=== PATIENT | male | born 1980 | race Caucasian/White ===

== ENCOUNTER 2019-01-29 17:25 | Inpatient (IN) ==
[2019-01-29] MEDS ORDERED: LORazepam 1 MG/2 ML VIAL IV STA (17:39)
[2019-01-29] MEDS ORDERED: SODIUM CHLORIDE 0.9% 1000ML 1,000 ML IV ONE (17:39)
[2019-01-29] MEDS ORDERED: PROCHLORPERAZINE 2 ML IV ONE (17:39)
[2019-01-29] MEDS ORDERED: FAMOTIDINE 20MG IV PUSH 20 MG/5 ML SYR IV STA (17:39)
[2019-01-29] MEDS ORDERED: MULTI-VITAMIN INFUSION 10 ML, THIAMINE HCL 100 MG, FOLIC ACID 1 MG in SODIUM CHLORIDE 0... IV ONE ×2 (17:39→22:38)
--- NOTE | 2019-01-29 18:02 | XRay Report ---
XR chest 1V portable HISTORY: Atypical Chest Pain COMPARISON: None. FINDINGS: The lungs are clear. Cardiac silhouette is normal in size. No pleural effusions. No pneumot horax. IMPRESSION: No acute process. Electronically signed by: Ruddy Rodrigues M.D. 01/29/2019 6:00 PM
[2019-01-29 18:19] LABS: INR 1.1 (0.9-1.1); Prothrombin Time 11.1 Seconds (9.0-12.0)
[2019-01-29 18:32] LABS: Albumin Globulin Ratio 0.9 (0.9-2); Albumin Level 4.9 gm/dl (3.4-5.0); BUN Creatinine Ratio 6.2 (10-20); Bilirubin,Total 3.4 mg/dl (0.2-1); Calcium 8.9 mg/dl (8.5-10.1); Creatinine Clr Calc Pharmacy 28.7 ml/min; Est GFR (African American) 26.1; Est GFR (Non-African American) 22.5; Globulin 5.2 gm/dl (2.5-4.0); Phosphorus 2.2 mg/dl (2.5-4.9); Total Protein 10.1 gm/dl (6.4-8.2)
[2019-01-29] MEDS ORDERED: D5W AND NSS 1,000 ML IV STA (18:47)
[2019-01-29] MEDS ORDERED: THIAMINE HCL 100 MG in SYRINGE 9 ML IV STA (18:47)
[2019-01-29 18:55] LABS: Basophils # (auto) 0.01 K/uL (0-0.2); Basophils % (auto) 0.1 %; Hematocrit (blood only) 47.3 % (42-52); Hemoglobin 17.4 g/dL (14.0-18.0); Immature Granulocytes # (auto) 0.04 K/uL (0.00-0.02); Immature Granulocytes % (auto) 0.2 %; Lymphocytes # (auto) 0.54 K/uL (1.2-3.4); Lymphocytes % (auto) 2.7 %; Mean Corpuscular Hemoglobin 34.1 pg (25-34); Mean Corpuscular Hgb Conc 36.8 g/dL (32-36); Mean Corpuscular Volume 92.6 fL (80-100); Mean Platelet Volume 10.3 fL (7.4-10.4); Monocytes # (auto) 1.25 K/uL (0.11-0.59); Monocytes % (auto) 6.3 %; Neutrophils # (auto) 18.03 K/uL (1.4-6.5); Neutrophils % (auto) 90.7 %; Platelet Count 203 K/uL (130-400); RDW Coefficient of Variation 12.8 % (11.5-14.5); RDW Standard Deviation 43.7 fL (36.4-46.3); Red Blood Count 5.11 M/uL (4.7-6.1); White Blood Count 19.87 K/uL (4.8-10.8)
[2019-01-29 20:05] LABS: Bilirubin Direct 0.5 mg/dl (0-0.2); Magnesium 1.4 mg/dl (1.8-2.4)
[2019-01-29 20:08] LABS: Beta-Hydroxybutyrate 4.62 mg/dl (0.2-2.81)
[2019-01-29 20:10] LABS: Base Excess VBG -1.8 mEq/L; HCO3 VBG 24 mmol/L; PCO2 VBG 43 mmHg (38-50); PO2 VBG 59 mmHg; pH VBG 7.36 (7.36-7.41)
[2019-01-29 20:14] LABS: Oxygen Saturation VBG < 60.0 %
--- NOTE | 2019-01-29 20:55 | History & Physical Report ---
Date of Service January 29, 2019 Assessment & Plan (1) Alcohol withdrawal: Severe - with s/s electrolyte abnormalities, hypovolemia, WILMAR, -pt states he has NO h/o withdrawal seizures or DTs when in supervised detoxification state -says this is his third attempt at detoxification. -thankfully presented within hours of last drink -last drink was 6am on 10Oct. -Withdrawal-associated seizures are generalized tonic-clonic convulsions that usually occur within 12 to 48 hours after the last alcoholic drink -Alcoholic hallucinosis refers to hallucinations that develop within 12 to 24 hours of abstinence and typically resolve within 24 to 48 hours (which is the earliest point at which DT typically develops) Plan: -AWSS protocol with gabapentin (renally dosed) and IV ativan. -follow closely for hallucinations, disorientation, tachycardia, hypertension, hyperthermia, agitation, and diaphoresis -if refractory DT, recommend phenobarbital 130 to 260 mg IV, repeated every 15 to 20 minutes, until symptoms are controlled. -npo overnight pending CT -- if normal, and emesis resolved -- ok for full liquids, then advance to regular. FEN/GI: famotidine 20mg IV BID in setting of scant blood in emesis history - ok to resume PO famotidine once emesis fully resolved. DVT ppx: SCDs, will hold chemical anticoagulation in light of h/o scant hematemesis CODE STATUS: FULL DISPO: med/tele on AWSS protocol - - desires to go to [facility] for rehab upon discharge. (2) Acute kidney injury: likely 2/2 dehydration in setting of diaphoresis, vomiting, decreased PO intake. No known h/o CKD. -aggressive fluid hydration -renally dose meds (inc gabapentin protocol) -follow BMP (3) Dehydration: -hypovolemia as a result of diaphoresis, hyperthermia, vomiting, tachypnea, and decreased oral intake -IV fluid hydration at maintenance and a half. -encourage PO hydration (4) Hyperemesis: zofran prn (5) Transaminitis: in setting of chronic alcohol abuse -- follow CMP, encourage alcohol cessation (6) Hyponatremia: 2/2 beer potomania -appears asymptomatic at this time -continue aggressive IV fluid hydration with nomal saline and isotonic potassium. Follow daily BMPs. (7) Hyperglycemia: Chronic heavy drinking has been associated with excessive blood glucose levels. Chronic alcohol abuse can reduce the body's responsiveness to insulin and because glucose intolerance, especially those with liver cirrhosis. Patient has a high risk of diabetes. However given recent binge drinking, acute alcohol consumption can augment insulin secretion--thankfully no hypoglycemia at this time, however will need to follow for hypoglycemia. -Levels have improved to the 200s simply with fluid hydration. -We will maintain n.p.o. overnight in acute state, and with recent emesis to prophylax aspiration. But would recommend resumption of a normal diet as soon as possible and as long as mentation maintains at normal. (8) Neutrophilic leukocytosis: Likely reactionary given alcohol withdrawal, alcohol abuse and hyperemesis for the last several days. Patient is afebrile although does complain of sore throat. Will follow for now and treat fevers as needed. (9) Hypomagnesemia: In setting of hyperemesis, replete as needed. (10) Hypophosphatemia: In setting of hyperemesis, replete as needed. (11) Hyperbilirubinemia: CT abd/pelv to assess for any blockages, but likely pt may have a cirrhotic picture in setting of chronic alcohol abuse. No curt jaundice on my exam. -agressive hydration, alcohol abstinence. -follow CMP, will likely self rsolve. (12) Benign essential hypertension: Continue home metoprolol tartrate - will unfortunately blunt some of his symptoms of withdrawal, follow closely. (13) Depression: Will HOLD home Seroquel in setting of acute withdrawal, as do not want to decrease seizure threshold at this time. Okay to resume upon discharge. (14) Tobacco abuse: NicoDerm patch 14 mg ordered. Ongoing education on cessation. (15) History of hematemesis: Appears to have been scant blood in his emesis earlier today. -Patient not acutely anemic. No history of melena or hematochezia. -Will order famotidine 20 mg twice daily IV and follow. -CT abdomen pelvis pending to evaluate for rupture, although clinically not suspicious given lack of free air on chest x-ray. (16) Alcohol abuse: Patient desires to go to [facility] for rehab upon discharge. Discharge planning ordered. (17) Dermatitis: topical hydrocortisone to face ordered. History of Present Illness Chief Complaint: Alcohol withdrawal, hyperemesis, hematemesis, hyperglycemia, hyponatremia, desire for detoxification Primary Care Provider: NO PCP This is a 39-year-old male who presents to the ER after attempting to check himself into rehab earlier today. He states his last drink was at 6 AM, he has been drinking over 1/5 of vodka every day for the last 4 days. Several days ago he began to experience worsening emesis. He notes blood tinged emesis earlier today. No curt melena or hematochezia. He also endorses hiccups for several days. He endorses severe muscle cramping in his abdomen, a sore throat and fatigue. Earlier at [facility] today, because of his discomfort and emesis they recommended he come to the ER to be evaluated. Patient notes alcohol abuse for several years. Occasional vaping with THC. History of marijuana use. Currently no other street drugs at this time. Patient smokes half pack per day. Drinks over fifth of vodka per day as above. Motivated for detox at [facility] upon discharge, says he wants to do it for "his kids". ED course: Patient with mild hypertension and sinus tachycardia on telemetry. Never hypoxic or febrile. CBC noted for leukocytosis 19.87, normal hemoglobin and hematocrit 17.4/47.3. Normal coagulation. VBG 7.3 643/59/24. Chemistry notable for sodium 124, bicarb 20, elevated anion gap 24, BUN/creatinine 21/3.29. Hyperglycemia 319. Proved to 249 after bolus. Mildly low phosphorus and magnesium. Hyperbilirubinemia 3.4, direct bilirubin 0.5. Mild transaminit is AST over ALT 86/200. Mildly elevated alkaline phosphatase 131. Elevated beta hydroxybutyric acid 4.62. Past medical history: Alcohol dependence, hypertension, kidney dysfunction (patient is unsure of specifics) Past surgical history: None Social history: As above Allergies Allergy/AdvReac Type Severity Reaction Status Date / Time Penicillins Allergy Rash Unverified 01/29/19 18:27 Home Medications Home Medications Medication Instructions Recorded Confirmed Type metoprolol tartrate 0 mg PO BID 01/29/19 01/29/19 History pantoprazole 0 mg PO DAILY 01/29/19 01/29/19 History quetiapine [Seroquel] 0 mg PO BID 01/29/19 01/29/19 History Past Med/Surg History Medical History Alcoholism Surgical History No pertinent past surgical history Family History Other No pertinent family history Social History Preferred Language: Georgian Communication Ability: Effective Beliefs That Will Affect Care: Moravian Current Living Situation: Alone Current Living Situation Comment: With children 50% of the time Other Information That Helps Us Care for You: No Feels Safe at Home: Yes Safety Concerns: Feels Safe At This Time Smoking Status: Current every day smoker Tobacco Type: cigarettes ; Do You Dip or Chew Tobacco: No ; Second Hand Exposure: No ; Tobacco Cessation Education Requested by Patient: Yes Hx Alcohol Use: Yes Alcohol type: hard liquor Review of Systems Review of Systems: worsening emesis. He notes blood tinged emesis earlier today. No curt melena or hematochezia. He also endorses hiccups for several days. He endorses severe muscle cramping in his abdomen, a sore throat and fatigue. Denies syncope, delirium, seizures or loss of consciousness. Physical Exam Physical Exam: Vitals noted and within normal limits with the exception of mild hypertension, sinus tachycardia. GENERAL: Awake, alert to person, place, and time, nontoxic-appearing, in no distress. HENT: Normocephalic, atraumatic. Mucus membranes appear moist. Dermatitis of the forehead and malar cheeks. EYES: Normal conjunctiva. Sclera non-icteric. EOMI. NECK: Supple. Full range of motion. No JVD. RESPIRATORY: Clear to auscultation. Normal work of breathing. CARDIAC: Regular rate, normal rhythm. Extremities warm and well perfused, 2+ radial pulses bilaterally; 2+ posterior tibialis pulses bilaterally. ABDOMEN: Soft, non-distended. No tenderness to palpation in all four quadrants. No rebound or guarding. No masses. Bowel sounds are normal. LOWER EXTREMITIES: Inspection of calves reveal equal size bilaterally. They are non-tender. No edema. No discoloration. NEURO: No gross focal motor deficits noted. Sensation in tact. CN II-XII grossly in tact. . SKIN: Rash on face consistent with dermatitis. No jaundice noted. PSYCH: Appropriate mood and affect. Cooperative. Exam as done by Ana Ly MD, [employer]. Results & Data Vital Signs (Past 12 Hours) Vital Signs Temp Pulse Resp BP Pulse Ox 01/29/19 19:31 119 H 21 01/29/19 19:30 122 H 19 143/97 H 01/29/19 19:04 107 H 22 100 01/29/19 19:03 109 H 24 149/99 H 100 01/29/19 18:30 114 H 23 151/103 H 99 01/29/19 18:18 128 H 19 97 01/29/19 17:26 36.9 C 128 H 19 142/82 H 97 Laboratory Results 01/29/19 01/29/19 01/29/19 Range/Units 19:54 19:54 19:21 WBC (4.8-10.8) K/uL RBC (4.7-6.1) M/uL Hgb (14.0-18.0) g/dL Hct (42-52) % MCV (80-100) fL MCH (25-34) pg MCHC (32-36) g/dL RDW Std Deviation (36.4-46.3) fL RDW Coeff of Kelby (11.5-14.5) % Plt Count (130-400) K/uL MPV (7.4-10.4) fL Immature Gran % (Auto) % Neut % (Auto) % Lymph % (Auto) % Crook % (Auto) % Eos % (Auto) % Baso % (Auto) % Immature Gran # (Auto) (0.00-0.02) K/uL Neut # (Auto) (1.4-6.5) K/uL Lymph # (Auto) (1.2-3.4) K/uL Crook # (Auto) (0.11-0.59) K/uL Eos # (Auto) (0-0.5) K/uL Baso # (Auto) (0-0.2) K/uL PT (9.0-12.0) Seconds INR (0.9-1.1) VBG pH 7.36 (7.36-7.41) VBG pCO2 43 (38-50) mmHg VBG pO2 59 mmHg VBG HCO3 24 mmol/L VBG O2 Saturation < 60.0 % VBG Base Excess -1.8 mEq/L Barometric Pressure 736.9 mm/Hg Sodium (136-145) mmol/L Potassium (3.5-5.1) mmol/L Chloride (98-107) mmol/L Carbon Dioxide (21-32) mmol/L Anion Gap (3-11) BUN (7-18) mg/dl Creatinine (0.6-1.4) mg/dl Est Cr Clr Drug Dosing ml/min Est GFR ( Amer) Est GFR (Non-Af Amer) BUN/Creatinine Ratio (10-20) Glucose (70-99) mg/dl POC Glucose 249 H (70-99) Osmolality (280-300) mOsm/kg Lactate Cancelled Calcium (8.5-10.1) mg/dl Phosphorus (2.5-4.9) mg/dl Magnesium (1.8-2.4) mg/dl Total Bilirubin (0.2-1) mg/dl Direct Bilirubin (0-0.2) mg/dl AST (15-37) U/L ALT (12-78) U/L Alkaline Phosphatase (45-117) U/L Total Creatine Kinase (39-308) U/L Total Protein (6.4-8.2) gm/dl Albumin (3.4-5.0) gm/dl Globulin (2.5-4.0) gm/dl Albumin/Globulin Ratio (0.9-2) Lipase (73-393) U/L Beta-Hydroxybutyric Acd (0.2-2.81) mg/dl 01/29/19 01/29/19 01/29/19 Range/Units 18:54 18:54 17:45 WBC (4.8-10.8) K/uL RBC (4.7-6.1) M/uL Hgb (14.0-18.0) g/dL Hct (42-52) % MCV (80-100) fL MCH (25-34) pg MCHC (32-36) g/dL RDW Std Deviation (36.4-46.3) fL RDW Coeff of Kelby (11.5-14.5) % Plt Count (130-400) K/uL MPV (7.4-10.4) fL Immature Gran % (Auto) % Neut % (Auto) % Lymph % (Auto) % Crook % (Auto) % Eos % (Auto) % Baso % (Auto) % Immature Gran # (Auto) (0.00-0.02) K/uL Neut # (Auto) (1.4-6.5) K/uL Lymph # (Auto) (1.2-3.4) K/uL Crook # (Auto) (0.11-0.59) K/uL Eos # (Auto) (0-0.5) K/uL Baso # (Auto) (0-0.2) K/uL PT 11.1 (9.0-12.0) Seconds INR 1.1 (0.9-1.1) VBG pH (7.36-7.41) VBG pCO2 (38-50) mmHg VBG pO2 mmHg VBG HCO3 mmol/L VBG O2 Saturation % VBG Base Excess mEq/L Barometric Pressure mm/Hg Sodium (136-145) mmol/L Potassium (3.5-5.1) mmol/L Chloride (98-107) mmol/L Carbon Dioxide (21-32) mmol/L Anion Gap (3-11) BUN (7-18) mg/dl Creatinine (0.6-1.4) mg/dl Est Cr Clr Drug Dosing ml/min Est GFR ( Amer) Est GFR (Non-Af Amer) BUN/Creatinine Ratio (10-20) Glucose (70-99) mg/dl POC Glucose (70-99) Osmolality 292 (280-300) mOsm/kg Lactate Calcium (8.5-10.1) mg/dl Phosphorus (2.5-4.9) mg/dl Magnesium 1.4 L (1.8-2.4) mg/dl Total Bilirubin (0.2-1) mg/dl Direct Bilirubin 0.5 H (0-0.2) mg/dl AST 86 H (15-37) U/L ALT (12-78) U/L Alkaline Phosphatase (45-117) U/L Total Creatine Kinase 251 (39-308) U/L Total Protein (6.4-8.2) gm/dl Albumin (3.4-5.0) gm/dl Globulin (2.5-4.0) gm/dl Albumin/Globulin Ratio (0.9-2) Lipase (73-393) U/L Beta-Hydroxybutyric Acd 4.62 H (0.2-2.81) mg/dl 01/29/19 01/29/19 Range/Units 17:45 17:45 WBC 19.87 H (4.8-10.8) K/uL RBC 5.11 (4.7-6.1) M/uL Hgb 17.4 (14.0-18.0) g/dL Hct 47.3 (42-52) % MCV 92.6 (80-100) fL MCH 34.1 H (25-34) pg MCHC 36.8 H (32-36) g/dL RDW Std Deviation 43.7 (36.4-46.3) fL RDW Coeff of Kelby 12.8 (11.5-14.5) % Plt Count 203 (130-400) K/uL MPV 10.3 (7.4-10.4) fL Immature Gran % (Auto) 0.2 % Neut % (Auto) 90.7 % Lymph % (Auto) 2.7 % Crook % (Auto) 6.3 % Eos % (Auto) 0.0 % Baso % (Auto) 0.1 % Immature Gran # (Auto) 0.04 H (0.00-0.02) K/uL Neut # (Auto) 18.03 H (1.4-6.5) K/uL Lymph # (Auto) 0.54 L (1.2-3.4) K/uL Crook # (Auto) 1.25 H (0.11-0.59) K/uL Eos # (Auto) 0.00 (0-0.5) K/uL Baso # (Auto) 0.01 (0-0.2) K/uL PT (9.0-12.0) Seconds INR (0.9-1.1) VBG pH (7.36-7.41) VBG pCO2 (38-50) mmHg VBG pO2 mmHg VBG HCO3 mmol/L VBG O2 Saturation % VBG Base Excess mEq/L Barometric Pressure mm/Hg Sodium 124 L (136-145) mmol/L Potassium (3.5-5.1) mmol/L Chloride 80 L (98-107) mmol/L Carbon Dioxide 20 L (21-32) mmol/L Anion Gap 24.0 H (3-11) BUN 21 H (7-18) mg/dl Creatinine 3.29 H (0.6-1.4) mg/dl Est Cr Clr Drug Dosing 28.7 ml/min Est GFR ( Amer) 26.1 Est GFR (Non-Af Amer) 22.5 BUN/Creatinine Ratio 6.2 L (10-20) Glucose 319 H* (70-99) mg/dl POC Glucose (70-99) Osmolality (280-300) mOsm/kg Lactate Calcium 8.9 (8.5-10.1) mg/dl Phosphorus 2.2 L (2.5-4.9) mg/dl Magnesium (1.8-2.4) mg/dl Total Bilirubin 3.4 H (0.2-1) mg/dl Direct Bilirubin (0-0.2) mg/dl AST (15-37) U/L ALT 200 H (12-78) U/L Alkaline Phosphatase 131 H (45-117) U/L Total Creatine Kinase (39-308) U/L Total Protein 10.1 H (6.4-8.2) gm/dl Albumin 4.9 (3.4-5.0) gm/dl Globulin 5.2 H (2.5-4.0) gm/dl Albumin/Globulin Ratio 0.9 (0.9-2) Lipase 86 (73-393) U/L Beta-Hydroxybutyric Acd (0.2-2.81) mg/dl Diagnostic Findings Chest x-ray within normal limits. CT abdomen pelvis without contrast pending as of this documentation. Medications Administered Ativan 1 mg, Pepcid 20 mg IV, banana bag, 1 L bolus of normal saline, Compazine, thiamine, dextrose and normal saline. Supervising Physician Co-Signing Physician Notes Patient was seen and examined by me personally. I reviewed the chart, the orders and discussed the case in detail with Dr. Ana Ly MD . I read this H&P and agree with its contents to entirety. PG Care Time/CCT Total # of Minutes Spent Total Time Spent with Patient: Total time spent is greater than 50% in coordination of care (as documented) at patient's floor/unit and/or counseling patient: Resident Activity Tracking Resident Involvement: Resident Care Provided Care Provided: Adult [facility] Medicine
--- NOTE | 2019-01-29 22:37 | CT Scan Report ---
ABDOMEN AND PELVIS CT WITHOUT CONTRAST CT DOSE: 308.11 mGy.cm HISTORY: Acute upper abdominal pain with nausea and vomiting upper abdominal pain, n/v, TECHNIQUE: Multiaxial CT images of the abdomen and pelvis were performed without contrast. A dose lo wering technique was utilized adhering to the principles of ALARA. COMPARISON STUDY: Chest radiograph of same day FINDINGS: Minimal dependent subsegmental bibasilar atelectasis. There is no pneumatosis or pneumoperitoneum. Th e study is mildly motion degraded. The imaged inferior cardiac chambers are unremarkable. Hepatic stephany atosis without evidence of cirrhosis or ascites. Spleen, pancreas, gallbladder and adrenal glands dylon ear unremarkable. No biliary ductal dilation. The kidneys, ureters and urinary bladder are unremarkab le. Calcifications are noted about the central prostate. Aorta and IVC are unremarkable. There is no adenopathy. Mild wall thickening of the distal esophagus with mild periesophageal stranding. The distal esophagus is also fluid-filled. There is no bowel obstruction or bowel wall thickening identified. Mild coloni c diverticulosis without acute diverticulitis. Visualized appendix appears noninflamed within the abd ominal right lower quadrant. Soft tissues are unremarkable. Bones appear to be intact. IMPRESSION: 1. Motion degraded exam. 2. No bowel obstruction or bowel wall thickening. 3. Visualized appendix appears noninflamed. 4. Fluid-filled distal esophagus demonstrates circumferential wall thickening with mild periesophagea l inflammation suggestive of esophagitis. Findings could be correlated with follow-up endoscopy if cl inically warranted. 5. Hepatic steatosis. Electronically signed by: Mark Peterson M.D. 01/29/2019 10:36 PM
[2019-01-29] MEDS ORDERED: ALUMINUM/MAGNESIUM SUSP 30 ML UDC PO PRN (22:38)
[2019-01-29] MEDS ORDERED: LORazepam 2 MG/4 ML VIAL IV PRN (22:38)
[2019-01-29] MEDS ORDERED: LORazepam 1 MG/2 ML VIAL IV PRN (22:38)
[2019-01-29] MEDS ORDERED: ONDANSETRON INJ 2 MG/ML 2 ML VIAL IV PRN (22:38)
[2019-01-29] MEDS ORDERED: MAGNESIUM HYDROXIDE SUSP 30 ML UDC PO PRN (22:38)
[2019-01-29] MEDS ORDERED: GABAPENTIN 600MG ALCOHOL WITHDRAWAL LOAD PO STA (22:38)
[2019-01-29] MEDS ORDERED: ATIVAN IV ALCOHOL WITHDRAWL IV SCH (22:38)
[2019-01-29] MEDS ORDERED: CHLORASEPTIC 1.4% SOLN 180 ML BTL MT PRN (22:38)
[2019-01-29] MEDS ORDERED: LORazepam 3 MG/6 ML VIAL IV PRN (22:38)
[2019-01-29] MEDS ORDERED: POLYETHYLENE (MIRALAX) 17 GM PACK PO PRN (22:38)
[2019-01-29] MEDS ORDERED: ACETAMINOPHEN 325 MG TAB PO PRN (22:38)
[2019-01-29] MEDS ORDERED: GABAPENTIN 600 MG TAB PO ONE (22:38)
[2019-01-29] MEDS: NSS + 20MEQ KCL 20 MEQ/1,000 ML BAG IV SCH (22:58)
[2019-01-29] MEDS: FOLIC ACID 1 MG in SYRINGE 9.8 ML IV SCH (23:05)
[2019-01-29] MEDS: THIAMINE HCL 100 MG in SYRINGE 9 ML IV SCH (23:05)
[2019-01-29] MEDS: HYDROCORTISONE 1% CRM 30 GM TUBE EXT SCH (23:16)
[2019-01-29] MEDS: METOPROLOL TARTRATE 25 MG TAB PO SCH (23:17)
--- NOTE | 2019-01-30 05:28 | Emergency Department Note ---
Entered by Thompson Coelho acting as a scribe for History of Present Illness General Chief complaint: Alcohol Withdrawal Stated complaint: SEVERE ALCOHOL WITHDRAWAL Time Seen by Provider: 01/29/19 17:32 Source: patient History of Present Illness Onset (ago): hour(s) (24) Pain Consistency: + intermittent Maximum Pain Intensity: 4 Quality: + other (nausea/vomiting) Exacerbated By: + eating (and drinking) Associated symptoms: + denies other symptoms (congestion) and + other (abdominal cramping, leg cramping); no cough and no fever/chills The patient is a 39 y/o male who presents to the ED w/ CC of intermittent nausea and vomiting beginning 24 hours ago. The patient presents from [facility] for alcoholism. He reports the last time alcoholic drink was at 6am. The patient notes he is not able to keep anything down without vomiting other than alcohol, and there is some blood present in his vomit. He states he cannot take his Valium because it makes him vomit. The patient reports he has also been getting abdominal cramping and cramping in his legs. He notes he was drinking a fifth of vodka a day and has been drinking a little more the past week. The patient states he was recently started on Seroquel, metoprolol, and pantoprazole, but he stopped taking it last week because he was drinking. He reports he went to detox a month ago, and he did not stay for rehab because he did not want to lose his job. The patient notes he was in detox for four days. He denies fevers, chills, cough, and congestion. Home Medications Home Medications Medication Instructions Recorded Confirmed Type metoprolol tartrate 0 mg PO BID 01/29/19 01/29/19 History pantoprazole 0 mg PO DAILY 01/29/19 01/29/19 History quetiapine [Seroquel] 0 mg PO BID 01/29/19 01/29/19 History Allergies Allergy/AdvReac Type Severity Reaction Status Date / Time Penicillins Allergy Rash Unverified 01/29/19 18:27 Past Med/Surg History Medical History Alcoholism Surgical History No pertinent past surgical history Family History Other No pertinent family history Social History Preferred Language: Setswana Communication Ability: Effective Beliefs That Will Affect Care: Jain Current Living Situation: Alone Current Living Situation Comment: With children 50% of the time Other Information That Helps Us Care for You: No Feels Safe at Home: Yes Safety Concerns: Feels Safe At This Time Smoking Status: Current every day smoker Tobacco Type: cigarettes ; Do You Dip or Chew Tobacco: No ; Second Hand Exposure: No ; Tobacco Cessation Education Requested by Patient: Yes Hx Alcohol Use: Yes Alcohol type: hard liquor Review of Systems See HPI for pertinent positives & negatives. and A total of 10 systems reviewed and were otherwise negative Physical Exam Vital Signs Vital Signs - 24 hr 01/29/19 17:26 01/29/19 18:18 01/29/19 18:30 Temperature 36.9 C Temperature Source Oral Sepsis Recent Fever Within 48 Hours No Sepsis Action Taken by Nursing No Action Required Pulse Rate 128 H 128 H 114 H Pulse Rate from SpO2 Sensor 113 H Pulse Rhythm Regular Regular Pulse Strength Normal Respiratory Rate 19 19 23 Blood Pressure 142/82 H 151/103 H Blood Pressure Mean 102 119 Blood Pressure Position Sitting Pulse Oximetry 97 97 99 Oxygen Delivery Method Room Air Room Air Room Air 01/29/19 19:03 01/29/19 19:04 01/29/19 19:30 Temperature Temperature Source Sepsis Recent Fever Within 48 Hours Sepsis Action Taken by Nursing Pulse Rate 109 H 107 H 122 H Pulse Rate from SpO2 Sensor 110 H 106 H Pulse Rhythm Pulse Strength Respiratory Rate 24 22 19 Blood Pressure 149/99 H 143/97 H Blood Pressure Mean 115 112 Blood Pressure Position Pulse Oximetry 100 100 Oxygen Delivery Method Room Air 01/29/19 19:31 01/29/19 20:00 01/29/19 20:01 Temperature Temperature Source Sepsis Recent Fever Within 48 Hours Sepsis Action Taken by Nursing Pulse Rate 119 H 122 H 115 H Pulse Rate from SpO2 Sensor Pulse Rhythm Pulse Strength Respiratory Rate 21 19 40 H Blood Pressure 146/98 H Blood Pressure Mean 114 Blood Pressure Position Pulse Oximetry Oxygen Delivery Method 01/29/19 20:30 01/29/19 20:31 Temperature Temperature Source Sepsis Recent Fever Within 48 Hours Sepsis Action Taken by Nursing Pulse Rate 126 H 120 H Pulse Rate from SpO2 Sensor Pulse Rhythm Pulse Strength Respiratory Rate 22 27 H Blood Pressure 150/104 H Blood Pressure Mean 119 Blood Pressure Position Pulse Oximetry Oxygen Delivery Method GENERAL: Awake, alert, ill-appearing, in no distress HENT: Normocephalic, atraumatic. Oropharynx with dry mucous membranes and otherwise unremarkable. EYES: Normal conjunctiva. Sclera non-icteric. EOMI. No nystamgus. PEARRL. NECK: Supple. No nuchal rigidity. FROM. No JVD. RESPIRATORY: CTAB CARDIAC: Tachycardic rate, normal rhythm. Extremities warm and well perfused. Pulses equal. ABDOMEN: Soft, non-distended. Generalized abdominal discomfort without discrete ttp. No rebound or guarding. No masses. RECTAL: Deferred. MUSCULOSKELETAL: Chest examination reveals no tenderness. The back is symmetric al on inspection without obvious abnormality. There is no CVA tenderness to palpation. No joint edema. LOWER EXTREMITIES: Calves are equal size bilaterally and non-tender. No edema. No discoloration. NEURO: Normal sensorium. No sensory or motor deficits noted. Mildly tremulous. SKIN: No rash or jaundice noted. Course 1733: Past medical records reviewed. The patient was evaluated in room C04. A complete history and physical exam was performed. 1940: Upon reevaluation, the patient is resting comfortably. I discussed laboratory and radiographic results with him. He verbalized agreement of the treatment plan. The patient will be evaluated for further management and care. 1946: I reviewed the patient's case with [place]. [place], [facility] He will evaluate the patient for further management. Administered Medications Hydrocortisone (Hydrocortisone 1%) 1 appln EXT BID LEATHA Stop: 02/28/19 22:37 Last Admin: 01/29/19 23:16 Dose: 1 appln Documented by: [id number] Folic Acid 1 mg/ Syringe 10 mls @ 5 mls/min IV QAM LEATHA Stop: 02/28/19 22:59 Last Admin: 01/29/19 23:05 Dose: 5 mls/min Documented by: [id number] Potassium Chloride/Sodium Chloride (Normal Saline W/20 Meq Kcl) 20 meq in 1,000 mls @ 150 mls/hr IV .Q6H40M LEATHA Stop: 02/01/19 22:37 Last Admin: 01/29/19 22:58 Dose: 150 mls/hr Documented by: [id number] Thiamine HCl 100 mg/ Syringe 10 mls @ 2 mls/min IV QAM LEATHA Stop: 02/28/19 22:44 Last Admin: 01/29/19 23:05 Dose: 2 mls/min Documented by: [id number] Metoprolol Tartrate (Lopressor) 25 mg PO BID LEATHA Stop: 02/28/19 22:37 Last Admin: 01/29/19 23:17 Dose: 25 mg Documented by: [id number] Phenol (Chloraseptic 1.4% Bighorn) 2 sprays MT QID PRN PRN Reason: Sore Throat Stop: 02/28/19 22:37 Last Admin: 01/29/19 23:16 Dose: 2 sprays Documented by: [id number] Discontinued Medications Gabapentin (Neurontin) 600 mg PO NOW ONE Stop: 01/29/19 22:39 Last Admin: 01/29/19 23:16 Dose: 600 mg Documented by: [id number] Lorazepam (Ativan) 1 mg in 2 mls @ 2 mls/min IV NOW STA Stop: 01/29/19 17:40 Last Admin: 01/29/19 17:55 Dose: 2 mls/min Documented by: [id number] Famotidine (Pepcid 20mg Iv Push) 20 mg in 5 mls @ 2.5 mls/min IV NOW STA Stop: 01/29/19 17:40 Last Admin: 01/29/19 17:55 Dose: 2.5 mls/min Documented by: [id number] Multivitamins 10 ml/ Thiamine HCl 100 mg/ Folic Acid 1 mg/Sodium Chloride 1,011.2 mls @ 1,011.2 mls/hr IV .Q1H ONE Stop: 01/29/19 18:38 Last Infusion: 01/29/19 19:41 Dose: 0 mls/hr Documented by: [id number] Admin: 01/29/19 18:47 Dose: 1,011.2 mls/hr Documented by: [id number] Sodium Chloride (Nss 1000ml) 1,000 mls @ 999 mls/hr IV .Q1H1M ONE Stop: 01/29/19 18:39 Last Infusion: 01/29/19 18:47 Dose: 0 mls/hr Documented by: [id number] Admin: 01/29/19 17:55 Dose: 999 mls/hr Documented by: [id number] Prochlorperazine (Compazine) 2 mls @ 1 mls/min IV ONE ONE Stop: 01/29/19 17:40 Last Admin: 01/29/19 17:55 Dose: 1 mls/min Documented by: [id number] Thiamine HCl 100 mg/ Syringe 10 mls @ 2 mls/min IV NOW STA Stop: 01/29/19 18:51 Last Admin: 01/29/19 19:28 Dose: 2 mls/min Documented by: [id number] Dextrose/Sodium Chloride (D5w And Nss) 1,000 mls @ 999 mls/hr IV .Q1H1M STA Stop: 01/29/19 19:47 Last Admin: 01/29/19 19:28 Dose: Not Given Documented by: [id number] Multivitamins 10 ml/ Thiamine HCl 100 mg/ Folic Acid 1 mg/Sodium Chloride 1,011.2 mls @ 500 mls/hr IV .Q2H2M ONE Stop: 01/30/19 00:39 Last Infusion: 01/30/19 01:14 Dose: 0 mls/hr Documented by: [id number] Admin: 01/29/19 23:05 Dose: 500 mls/hr Documented by: [id number] Medical Decision Making Differential Diagnosis The differential diagnosis of the patient's presentation includes alcohol ingestion, illicit drug use, trauma, and dehydration. Medical Records Attestation: I reviewed the patient's medical records. Home Medications Current Medication List: was personally reviewed by me Laboratory Data Attestation: I reviewed the patient's lab results. Result diagrams: 01/29/19 17:45 01/29/19 17:45 Lab Results 01/29/19 01/29/19 01/29/19 Range/Units 17:45 17:45 17:45 WBC 19.87 H (4.8-10.8) K/uL RBC 5.11 (4.7-6.1) M/uL Hgb 17.4 (14.0-18.0) g/dL Hct 47.3 (42-52) % MCV 92.6 (80-100) fL MCH 34.1 H (25-34) pg MCHC 36.8 H (32-36) g/dL RDW Std Deviation 43.7 (36.4-46.3) fL RDW Coeff of Kelby 12.8 (11.5-14.5) % Plt Count 203 (130-400) K/uL MPV 10.3 (7.4-10.4) fL Immature Gran % (Auto) 0.2 % Neut % (Auto) 90.7 % Lymph % (Auto) 2.7 % Price % (Auto) 6.3 % Eos % (Auto) 0.0 % Baso % (Auto) 0.1 % Immature Gran # (Auto) 0.04 H (0.00-0.02) K/uL Neut # (Auto) 18.03 H (1.4-6.5) K/uL Lymph # (Auto) 0.54 L (1.2-3.4) K/uL Price # (Auto) 1.25 H (0.11-0.59) K/uL Eos # (Auto) 0.00 (0-0.5) K/uL Baso # (Auto) 0.01 (0-0.2) K/uL PT 11.1 (9.0-12.0) Seconds INR 1.1 (0.9-1.1) VBG pH (7.36-7.41) VBG pCO2 (38-50) mmHg VBG pO2 mmHg VBG HCO3 mmol/L VBG O2 Saturation % VBG Base Excess mEq/L Barometric Pressure mm/Hg Sodium 124 L (136-145) mmol/L Potassium (3.5-5.1) mmol/L Chloride 80 L (98-107) mmol/L Carbon Dioxide 20 L (21-32) mmol/L Anion Gap 24.0 H (3-11) BUN 21 H (7-18) mg/dl Creatinine 3.29 H (0.6-1.4) mg/dl Est Cr Clr Drug Dosing 28.7 ml/min Est GFR ( Amer) 26.1 Est GFR (Non-Af Amer) 22.5 BUN/Creatinine Ratio 6.2 L (10-20) Glucose 319 H* (70-99) mg/dl POC Glucose (70-99) Osmolality (280-300) mOsm/kg Lactate Calcium 8.9 (8.5-10.1) mg/dl Phosphorus 2.2 L (2.5-4.9) mg/dl Magnesium (1.8-2.4) mg/dl Total Bilirubin 3.4 H (0.2-1) mg/dl Direct Bilirubin (0-0.2) mg/dl AST (15-37) U/L ALT 200 H (12-78) U/L Alkaline Phosphatase 131 H (45-117) U/L Total Creatine Kinase (39-308) U/L Total Protein 10.1 H (6.4-8.2) gm/dl Albumin 4.9 (3.4-5.0) gm/dl Globulin 5.2 H (2.5-4.0) gm/dl Albumin/Globulin Ratio 0.9 (0.9-2) Lipase 86 (73-393) U/L Beta-Hydroxybutyric Acd (0.2-2.81) mg/dl 01/29/19 01/29/19 01/29/19 Range/Units 18:54 18:54 19:21 WBC (4.8-10.8) K/uL RBC (4.7-6.1) M/uL Hgb (14.0-18.0) g/dL Hct (42-52) % MCV (80-100) fL MCH (25-34) pg MCHC (32-36) g/dL RDW Std Deviation (36.4-46.3) fL RDW Coeff of Kelby (11.5-14.5) % Plt Count (130-400) K/uL MPV (7.4-10.4) fL Immature Gran % (Auto) % Neut % (Auto) % Lymph % (Auto) % Price % (Auto) % Eos % (Auto) % Baso % (Auto) % Immature Gran # (Auto) (0.00-0.02) K/uL Neut # (Auto) (1.4-6.5) K/uL Lymph # (Auto) (1.2-3.4) K/uL Price # (Auto) (0.11-0.59) K/uL Eos # (Auto) (0-0.5) K/uL Baso # (Auto) (0-0.2) K/uL PT (9.0-12.0) Seconds INR (0.9-1.1) VBG pH (7.36-7.41) VBG pCO2 (38-50) mmHg VBG pO2 mmHg VBG HCO3 mmol/L VBG O2 Saturation % VBG Base Excess mEq/L Barometric Pressure mm/Hg Sodium (136-145) mmol/L Potassium (3.5-5.1) mmol/L Chloride (98-107) mmol/L Carbon Dioxide (21-32) mmol/L Anion Gap (3-11) BUN (7-18) mg/dl Creatinine (0.6-1.4) mg/dl Est Cr Clr Drug Dosing ml/min Est GFR ( Amer) Est GFR (Non-Af Amer) BUN/Creatinine Ratio (10-20) Glucose (70-99) mg/dl POC Glucose 249 H (70-99) Osmolality 292 (280-300) mOsm/kg Lactate Calcium (8.5-10.1) mg/dl Phosphorus (2.5-4.9) mg/dl Magnesium 1.4 L (1.8-2.4) mg/dl Total Bilirubin (0.2-1) mg/dl Direct Bilirubin 0.5 H (0-0.2) mg/dl AST 86 H (15-37) U/L ALT (12-78) U/L Alkaline Phosphatase (45-117) U/L Total Creatine Kinase 251 (39-308) U/L Total Protein (6.4-8.2) gm/dl Albumin (3.4-5.0) gm/dl Globulin (2.5-4.0) gm/dl Albumin/Globulin Ratio (0.9-2) Lipase (73-393) U/L Beta-Hydroxybutyric Acd 4.62 H (0.2-2.81) mg/dl 01/29/19 01/29/19 Range/Units 19:54 19:54 WBC (4.8-10.8) K/uL RBC (4.7-6.1) M/uL Hgb (14.0-18.0) g/dL Hct (42-52) % MCV (80-100) fL MCH (25-34) pg MCHC (32-36) g/dL RDW Std Deviation (36.4-46.3) fL RDW Coeff of Kelby (11.5-14.5) % Plt Count (130-400) K/uL MPV (7.4-10.4) fL Immature Gran % (Auto) % Neut % (Auto) % Lymph % (Auto) % Price % (Auto) % Eos % (Auto) % Baso % (Auto) % Immature Gran # (Auto) (0.00-0.02) K/uL Neut # (Auto) (1.4-6.5) K/uL Lymph # (Auto) (1.2-3.4) K/uL Price # (Auto) (0.11-0.59) K/uL Eos # (Auto) (0-0.5) K/uL Baso # (Auto) (0-0.2) K/uL PT (9.0-12.0) Seconds INR (0.9-1.1) VBG pH 7.36 (7.36-7.41) VBG pCO2 43 (38-50) mmHg VBG pO2 59 mmHg VBG HCO3 24 mmol/L VBG O2 Saturation < 60.0 % VBG Base Excess -1.8 mEq/L Barometric Pressure 736.9 mm/Hg Sodium (136-145) mmol/L Potassium (3.5-5.1) mmol/L Chloride (98-107) mmol/L Carbon Dioxide (21-32) mmol/L Anion Gap (3-11) BUN (7-18) mg/dl Creatinine (0.6-1.4) mg/dl Est Cr Clr Drug Dosing ml/min Est GFR ( Amer) Est GFR (Non-Af Amer) BUN/Creatinine Ratio (10-20) Glucose (70-99) mg/dl POC Glucose (70-99) Osmolality (280-300) mOsm/kg Lactate Cancelled Calcium (8.5-10.1) mg/dl Phosphorus (2.5-4.9) mg/dl Magnesium (1.8-2.4) mg/dl Total Bilirubin (0.2-1) mg/dl Direct Bilirubin (0-0.2) mg/dl AST (15-37) U/L ALT (12-78) U/L Alkaline Phosphatase (45-117) U/L Total Creatine Kinase (39-308) U/L Total Protein (6.4-8.2) gm/dl Albumin (3.4-5.0) gm/dl Globulin (2.5-4.0) gm/dl Albumin/Globulin Ratio (0.9-2) Lipase (73-393) U/L Beta-Hydroxybutyric Acd (0.2-2.81) mg/dl Imaging Data Radiologist's Impression: Radiology results as stated below per my review and the radiologist's interpretation: XR chest 1V portable HISTORY: Atypical Chest Pain COMPARISON: None. FINDINGS: The lungs are clear. Cardiac silhouette is normal in size. No pleural effusions. No pneumothorax. IMPRESSION: No acute process. Electronically signed by: Ruddy Rodrigues M.D. 01/29/2019 6:00 PM ABDOMEN AND PELVIS CT WITHOUT CONTRAST CT DOSE: 308.11 mGy.cm HISTORY: Acute upper abdominal pain with nausea and vomiting upper abdominal pain, n/v, TECHNIQUE: Multiaxial CT images of the abdomen and pelvis were performed without contrast. A dose lowering technique was utilized adhering to the principles of ALARA. COMPARISON STUDY: Chest radiograph of same day FINDINGS: Minimal dependent subsegmental bibasilar atelectasis. There is no pneumatosis or pneumoperitoneum. The study is mildly motion degraded. The imaged inferior cardiac chambers are unremarkable. Hepatic steatosis without evidence of cirrhosis or ascites. Spleen, pancreas, gallbladder and adrenal glands appear unremarkable. No biliary ductal dilation. The kidneys, ureters and urinary bladder are unremarkable. Calcifications are noted about the central prostate. Aorta and IVC are unremarkable. There is no adenopathy. Mild wall thickening of the distal esophagus with mild periesophageal stranding. The distal esophagus is also fluid-filled. There is no bowel obstruction or bowel wall thickening identified. Mild colonic diverticulosis without acute diverticulitis. Visualized appendix appears noninflamed within the abdominal right lower quadrant. Soft tissues are unremarkable. Bones appear to be intact. IMPRESSION: 1. Motion degraded exam. 2. No bowel obstruction or bowel wall thickening. 3. Visualized appendix appears noninflamed. 4. Fluid-filled distal esophagus demonstrates circumferential wall thickening with mild periesophageal inflammation suggestive of esophagitis. Findings could be correlated with follow-up endoscopy if clinically warranted. 5. Hepatic steatosis. Electronically signed by: Mark Peterson M.D. 01/29/2019 10:36 PM ECG Data Attestation: I personally reviewed and interpreted this ECG as follows: Indication: tachycardia Rate (beats per minute): 106 Rhythm: sinus tachycardia Findings: + other (normal axis); no ST depression, no ST elevation and no acute ischemic change Blood Pressure Blood Pressure Findings: Elevated blood pressure Blood Pressure Disposition: Referred to patients primary care provider PATT Narrative The patient is a pleasant 39 yo gentleman with a pmhx of etoh abuse/dependence who presents to the emergency department from [place] detox program for persistent n/v with inability to take his oral detox medications per HPI. Patient reports he has some emesis that was blood tinged but denies gross hematemesis. On arrival the patient is ill appearing but in NAD, AF, tachycardic to 120s and otherwise VSS. Patient appears clinically dry. He is mild tremulous. Abdomen with generalized discomfort without discrete ttp. Normal reflexes. No clonus. EKG without overt acute ischemia. CXR negative for free air. WBC 19.8K in the setting of patient's persistent n/v. H/H and platelets wnl. VBG unremarkable. Chemistry demonstrates acute renal failure, which is consistent with patient's report of dark colored urine recently. Agap 24 however with bicarb 20. Lactate unable to result. Sodium 124 but with glucose of 319 and so corrects to 128. Lipase wnl. BSG improved to 249 with IVF hydration alone. BHB 4.6. Magnesium pending redraw. INR 1.1. Total bilirubin 3.4 with Direct biiirubin of 0.5. AST 86, and ALT 200. Alk Phos 131. Patient feeling improved after IVF hydration, Ativan, Compazine, Pepcid, Thiamine/Banana bag. HR improved to 100s. CT ordered and pending. Given patient's acidosis, which is likely related to patient's renal failure/dehydration and possible new onset diabetes from etoh patient was referred for admission. Case d/[place]. [place], [facility] [place] who will evaluate the patient for admission. Subsequently, CT demonstrates evidence of esphogatitis as well as hepatosteatosis. Impression & Plan Acute renal failure, Metabolic acidosis, Hyperglycemia, Alcohol withdrawal Critical Care Time Critical Care Time: Yes Total Critical Care Time: 45 I have personally spent greater than 45 minutes of critical care time in the direct management of this patient. This includes bedside care, interpretation of diagnostic studies, and testing, discussion with consultants, patient, and family members, and other required patient management activities. This 45 minutes is in excess of all separately billable procedures. Discharge Plan Visit Data *Final* Discharge Date/Time: 01/29/19 21:23 Chief Complaint: Alcohol Withdrawal Stated Complaint: SEVERE ALCOHOL WITHDRAWAL ED Provider: Roberto Miller Discharge Problem: Acute renal failure, Metabolic acidosis, Hyperglycemia, Alcohol withdrawal Patient Disposition: Admitted As Inpatient Discharge Instructions Interventions: ED Discharge Assessment Last Done: 01/29/19 21:23 Discharge Problem: Acute renal failure Qualifiers: Acute renal failure type: unspecified Qualified Code(s): N17.9 - Acute kidney failure, unspecified Alcohol withdrawal Qualifiers: Complication of substance-induced condition: uncomplicated Qualified Code(s): F10.230 - Alcohol dependence with withdrawal, uncomplicated The scribe's documentation has been prepared under my direction and personally reviewed by me in its entirety. I confirm that the note above accurately reflects all work, treatment, procedures, and medical decision making performed by me.
[2019-01-30] MEDS: NSS + 20MEQ KCL 20 MEQ/1,000 ML BAG IV SCH ×3 (05:38→20:41)
[2019-01-30] MEDS: GABAPENTIN 100 MG CAP PO SCH ×2 (06:07→12:55)
[2019-01-30] MEDS: NICOTINE 14 MG/24 HR PATCH TD SCH (08:01)
[2019-01-30] MEDS: METOPROLOL TARTRATE 25 MG TAB PO SCH ×2 (08:01→20:57)
[2019-01-30] MEDS: FOLIC ACID 1 MG in SYRINGE 9.8 ML IV SCH (08:02)
[2019-01-30] MEDS: THIAMINE HCL 100 MG in SYRINGE 9 ML IV SCH (08:02)
[2019-01-30] MEDS: HYDROCORTISONE 1% CRM 30 GM TUBE EXT SCH ×2 (08:02→20:42)
[2019-01-30] MEDS: FAMOTIDINE 20 MG in SYRINGE 3 ML IV SCH ×2 (08:07→20:45)
[2019-01-30 08:24] LABS: Albumin Level 2.9 gm/dl (3.4-5.0); BUN Creatinine Ratio 10.9 (10-20); Bilirubin Direct 0.4 mg/dl (0-0.2); Calcium 7.2 mg/dl (8.5-10.1); Creatinine Clr Calc Pharmacy 48.9 ml/min; Est GFR (African American) 48.2; Est GFR (Non-African American) 41.6; Potassium 4.2 mmol/L (3.5-5.1)
[2019-01-30 08:27] LABS: Bilirubin,Total 1.6 mg/dl (0.2-1); Total Protein 5.9 gm/dl (6.4-8.2)
[2019-01-30] MEDS ORDERED: FAMOTIDINE 10 MG/ML 2ML VIAL IV SCH (09:00)
[2019-01-30 09:02] LABS: Appearance Urine Clear (Clear); Bilirubin Urine Negative (Negative); Blood Urine Negative (Negative); Color Urine Yellow; Glucose Urine UA Negative (Negative); Ketones Urine Negative (Negative); Leukocyte Esterase Urine Negative (Negative); Nitrite Urine Negative (Negative); Protein Urine Negative (Negative); Urobilinogen Urine Negative (Negative)
[2019-01-30 09:17] LABS: Vitamin B12 706 pg/ml (211-911)
[2019-01-30 09:18] LABS: Folate (Folic Acid) > 24.00 ng/ml (>5.38)
[2019-01-30 10:06] LABS: Hepatitis B Surface Antigen Neg (Neg)
[2019-01-30 10:35] LABS: Hepatitis C IgG 13Yrs+Old_Rflx Neg (Neg)
[2019-01-30 10:44] LABS: Hematocrit (blood only) 32.5 % (42-52); Hemoglobin 11.3 g/dL (14.0-18.0); Mean Corpuscular Hemoglobin 32.6 pg (25-34); Mean Corpuscular Hgb Conc 34.8 g/dL (32-36); Mean Corpuscular Volume 93.7 fL (80-100); RDW Coefficient of Variation 13.1 % (11.5-14.5); RDW Standard Deviation 45.1 fL (36.4-46.3); Red Blood Count 3.47 M/uL (4.7-6.1)
[2019-01-30 11:12] LABS: Basophils # (auto) 0.01 K/uL (0-0.2); Basophils % (auto) 0.1 %; Immature Granulocytes # (auto) 0.02 K/uL (0.00-0.02); Immature Granulocytes % (auto) 0.2 %; Lymphocytes # (auto) 1.22 K/uL (1.2-3.4); Lymphocytes % (auto) 11.1 %; Mean Platelet Volume 9.8 fL (7.4-10.4); Monocytes # (auto) 0.77 K/uL (0.11-0.59); Neutrophils # (auto) 8.98 K/uL (1.4-6.5); Neutrophils % (auto) 81.6 %; Platelet Count 93 K/uL (130-400); Platelet Estimate Decreased (Normal)
[2019-01-30 15:04] LABS: Albumin Level 3.2 gm/dl (3.4-5.0); BUN Creatinine Ratio 8.6 (10-20); Calcium 7.9 mg/dl (8.5-10.1); Creatinine Clr Calc Pharmacy 40.4 ml/min; Est GFR (African American) 38.2; Potassium 3.9 mmol/L (3.5-5.1)
[2019-01-30 15:12] LABS: Albumin Globulin Ratio 0.9 (0.9-2); Globulin 3.5 gm/dl (2.5-4.0); Total Protein 6.7 gm/dl (6.4-8.2)
--- NOTE | 2019-01-30 16:44 | Family Medicine Progress Note ---
Date of Service January 30, 2019 Assessment & Plan (1) Acute renal failure: - continues to increase through the course of the day - trend BMP daily - IVF - 150cc/hr - encourage POI soft diet, progress to full in AM - continue zofran, reglan, famotidine Present on Admission?: Yes (2) Alcohol withdrawal: - currently asymptomatic - continue gabapentin protocol with PRN ativan - daily thiamine and B complex replete - monitor for further sx Present on Admission?: Yes (3) Tobacco abuse: - nicotine patch ordered (4) Benign essential hypertension: - normotensive without therapy - monitor BP Present on Admission?: Yes (5) Hyponatremia: - mild - monitor with rehydration Present on Admission?: Yes (6) Alcohol abuse: - pending discharge to rehabilitation over weekend when medically stable, see Case Management notes for detail Present on Admission?: Yes (7) Transaminitis: - mild, likely related to etOH abuse - repeat CMP in AM Present on Admission?: Yes Subjective Pt seen and examined at bedside. Complaints presently limited to esophageal discomfort with swallowing dry foods and mild epigastric discomfort worse with engaging abd muscles. Tolerating soft diet well with mild irritation sensation. Reports no MERAZ, vision/hearing changes, chills, nausea, diarrhea/constipation, rashes, n/t/w. Review of Systems Constitutional: no fever, no chills and no fatigue Eyes: no eye pain, no photophobia and no worsening vision Respiratory: no cough, no dyspnea and no wheezing Cardiovascular: no chest pain, no dyspnea and no lightheadedness Gastrointestinal: + abdominal pain and + heartburn; no nausea and no vomiting Musculoskeletal: no back pain, no neck pain and no joint pain Neurologic: no dizziness, no syncope, no headache(s) and no abnormal speech Psychiatric: no behavioral changes, no depression and no irritability Physical Exam Constitutional: WD/WN, vitals as above well developed and well nourished; no acute distress Eyes: PERRL, normal accommodation and EOM intact bilaterally ENMT: Mouth: no oropharynx abnormality and no tongue abnormality Throat: uvula midline Respiratory: normal respiratory effort, lungs clear to auscultation normal respiratory effort Cardiovascular: RRR, no murmur, no edema Rate/Rhythm: regular rate and regular rhythm Heart Sounds: normal S1 and normal S2 Gastrointestinal (Abdomen): Inspection/Auscultation: abdomen normal to inspection and normal bowel sounds Percussion/Palpation: + abdomen tender (epigastric, mild) Skin: no rashes, warm and dry visible capillary rupture of the face following vomiting Neurologic: patellar DTR's 2+ bilat, sensation intact and PERRL, EOMI, accommodation nl, no face palsy, no dysarthria normal touch/pain/proprioception Results & Data Vital Signs (Past 12 Hours) Vital Signs Temp Pulse Pulse Resp BP Pulse Ox 01/30/19 14:52 37.5 C 98 H 20 127/82 97 01/30/19 11:25 37.1 C 88 22 129/86 97 01/30/19 07:18 85 01/30/19 07:00 36.9 C 94 H 18 121/80 98 01/30/19 05:14 91 H Labs reviewed in EHR up to 1700 (1) Acute renal failure Acute renal failure type: unspecified Qualified Code(s): N17.9 - Acute kidney failure, unspecified (2) Alcohol withdrawal Complication of substance-induced condition: uncomplicated Qualified Code(s): F10.230 - Alcohol dependence with withdrawal, uncomplicated
[2019-01-30] MEDS: SUCRALFATE 1 GM/10 ML UDC PO PRN ×2 (18:46→23:03)
[2019-01-31] MEDS: NSS + 20MEQ KCL 20 MEQ/1,000 ML BAG IV SCH ×2 (03:29→10:14)
[2019-01-31] MEDS ORDERED: ALUMINUM/MAGNESIUM SUSP 30 ML UDC ONE (03:36)
[2019-01-31 06:59] LABS: Albumin Globulin Ratio 0.8 (0.9-2); Albumin Level 2.8 gm/dl (3.4-5.0); BUN Creatinine Ratio 7.5 (10-20); Bilirubin Direct 0.2 mg/dl (0-0.2); Calcium 7.7 mg/dl (8.5-10.1); Est GFR (African American) 53.1; Est GFR (Non-African American) 45.8; Globulin 3.4 gm/dl (2.5-4.0); Potassium 4.3 mmol/L (3.5-5.1); Total Protein 6.2 gm/dl (6.4-8.2)
[2019-01-31] MEDS: NICOTINE 14 MG/24 HR PATCH TD SCH (08:11)
[2019-01-31] MEDS: METOPROLOL TARTRATE 25 MG TAB PO SCH (08:11)
[2019-01-31] MEDS: SUCRALFATE 1 GM/10 ML UDC PO PRN (08:11)
[2019-01-31] MEDS: HYDROCORTISONE 1% CRM 30 GM TUBE EXT SCH (08:12)
[2019-01-31] MEDS: THIAMINE HCL 100 MG in SYRINGE 9 ML IV SCH (08:17)
[2019-01-31] MEDS: FOLIC ACID 1 MG in SYRINGE 9.8 ML IV SCH (08:17)
[2019-01-31] MEDS: FAMOTIDINE 20 MG in SYRINGE 3 ML IV SCH (08:17)
[2019-01-31 09:48] LABS: Hepatitis A Antibody IgM NON-REACTIVE (NON-REACTIVE); Hepatitis B Core Antibody IgM NON-REACTIVE (NON-REACTIVE)
--- NOTE | 2019-01-31 10:58 | Family Medicine Progress Note ---
Date of Service January 31, 2019 Assessment & Plan (1) Acute renal failure: - NS with 20meQ K IVF running - Cr and BUN are improving with fluid management (1.83 and 14 today) - urine osm decreased at 387 (2) Alcohol withdrawal: (3) History of hematemesis: (4) Hypophosphatemia: (5) Hypomagnesemia: (6) Depression: (7) Tobacco abuse: (8) Dermatitis: Subjective Pt doing well this morning. Denies any shaking, tremors, headaches, visual disturbances. Does appear to be increasingly agitated and "wants to leave here today whether it's to rehab or somewhere else". Denies any nausea or vomiting. Has been handling a full liquid diet well. Yesterday was complaining of pain with swallowing in the midchest, which he says has been improving with each meal. Review of Systems Constitutional: + increased appetite; no fever, no chills, no sweats, no body aches and no malaise Respiratory: no cough and no dyspnea Cardiovascular: no chest pain, no chest pain with activity, no dyspnea and no edema Gastrointestinal: + hematemesis (few episodes this week, no longer having hematemesis); no abdominal pain, no heartburn, no nausea, no vomiting, no coffee ground emesis and no change in stools Physical Exam Constitutional: not diaphoretic Sitting comfortably in bed and participating in conversation, increasingly agitated as I told him I would try to begin the discharge process but could not promise when that would happen Results & Data Vital Signs (Past 12 Hours) Vital Signs Temp Pulse Resp BP Pulse Ox 01/31/19 07:43 37.0 C 72 18 135/87 98 01/31/19 03:04 37.1 C 84 18 135/87 97 01/30/19 23:02 37.6 C H 90 20 143/94 H 98 Laboratory Results WBC 11.00 K/uL (4.8-10.8) H 01/30/19 07:38 RBC 3.47 M/uL (4.7-6.1) L 01/30/19 07:38 Hgb 11.3 g/dL (14.0-18.0) L D 01/30/19 07:38 Hct 32.5 % (42-52) L 01/30/19 07:38 MCV 93.7 fL (80-100) 01/30/19 07:38 MCH 32.6 pg (25-34) 01/30/19 07:38 MCHC 34.8 g/dL (32-36) 01/30/19 07:38 RDW Std Deviation 45.1 fL (36.4-46.3) 01/30/19 07:38 RDW Coeff of [place] 13.1 % (11.5-14.5) 01/30/19 07:38 Plt Count 93 K/uL (130-400) L D 01/30/19 07:38 MPV 9.8 fL (7.4-10.4) 01/30/19 07:38 Immature Gran % (Auto) 0.2 % 01/30/19 07:38 Neut % (Auto) 81.6 % 01/30/19 07:38 Lymph % (Auto) 11.1 % 01/30/19 07:38 [place] % (Auto) 7.0 % 01/30/19 07:38 Eos % (Auto) 0.0 % 01/30/19 07:38 Baso % (Auto) 0.1 % 01/30/19 07:38 Immature Gran # (Auto) 0.02 K/uL (0.00-0.02) 01/30/19 07:38 Neut # (Auto) 8.98 K/uL (1.4-6.5) H 01/30/19 07:38 Lymph # (Auto) 1.22 K/uL (1.2-3.4) 01/30/19 07:38 [place] # (Auto) 0.77 K/uL (0.11-0.59) H 01/30/19 07:38 Eos # (Auto) 0.00 K/uL (0-0.5) 01/30/19 07:38 Baso # (Auto) 0.01 K/uL (0-0.2) 01/30/19 07:38 Platelet Estimate Decreased (Normal) L 01/30/19 07:38 PT 11.1 Seconds (9.0-12.0) 01/29/19 17:45 INR 1.1 (0.9-1.1) 01/29/19 17:45 VBG pH 7.36 (7.36-7.41) 01/29/19 19:54 VBG pCO2 43 mmHg (38-50) 01/29/19 19:54 VBG pO2 59 mmHg 01/29/19 19:54 VBG HCO3 24 mmol/L 01/29/19 19:54 VBG O2 Saturation < 60.0 % 01/29/19 19:54 VBG Base Excess -1.8 mEq/L 01/29/19 19:54 Barometric Pressure 736.9 mm/Hg 01/29/19 19:54 Sodium 137 mmol/L (136-145) 01/31/19 06:16 Potassium 4.3 mmol/L (3.5-5.1) 01/31/19 06:16 Chloride 107 mmol/L (98-107) 01/31/19 06:16 Carbon Dioxide 25 mmol/L (21-32) 01/31/19 06:16 Anion Gap 5.0 (3-11) 01/31/19 06:16 BUN 14 mg/dl (7-18) 01/31/19 06:16 Creatinine 1.83 mg/dl (0.6-1.4) H D 01/31/19 06:16 Est Cr Clr Drug Dosing 53.0 ml/min 01/31/19 06:16 Est GFR ( Amer) 53.1 01/31/19 06:16 Est GFR (Non-Af Amer) 45.8 01/31/19 06:16 BUN/Creatinine Ratio 7.5 (10-20) L 01/31/19 06:16 Glucose 97 mg/dl (70-99) 01/31/19 06:16 POC Glucose 192 (70-99) H 01/29/19 22:51 Osmolality 292 mOsm/kg (280-300) 01/29/19 18:54 Lactate Cancelled 01/29/19 19:54 Calcium 7.7 mg/dl (8.5-10.1) L 01/31/19 06:16 Phosphorus 2.2 mg/dl (2.5-4.9) L 01/29/19 17:45 Magnesium 1.4 mg/dl (1.8-2.4) L 01/29/19 18:54 Total Bilirubin 1.0 mg/dl (0.2-1) 01/31/19 06:16 Direct Bilirubin 0.2 mg/dl (0-0.2) 01/31/19 06:16 AST 41 U/L (15-37) H 01/31/19 06:16 ALT 72 U/L (12-78) 01/31/19 06:16 Alkaline Phosphatase 61 U/L (45-117) 01/31/19 06:16 Total Creatine Kinase 251 U/L (39-308) 01/29/19 18:54 Total Protein 6.2 gm/dl (6.4-8.2) L 01/31/19 06:16 Albumin 2.8 gm/dl (3.4-5.0) L 01/31/19 06:16 Globulin 3.4 gm/dl (2.5-4.0) 01/31/19 06:16 Albumin/Globulin Ratio 0.8 (0.9-2) L 01/31/19 06:16 Lipase 86 U/L (73-393) 01/29/19 17:45 Vitamin B12 706 pg/ml (211-911) 01/30/19 07:37 Folate > 24.00 ng/ml (>5.38) 01/30/19 07:37 Beta-Hydroxybutyric Acd 4.62 mg/dl (0.2-2.81) H 01/29/19 18:54 Urine Color Yellow 01/30/19 08:00 Urine Appearance Clear (Clear) 01/30/19 08:00 Urine pH 6.0 (4.5-7.5) 01/30/19 08:00 Ur Specific [place] 1.010 (1.000-1.030) 01/30/19 08:00 Urine Protein Negative (Negative) 01/30/19 08:00 Urine Glucose (UA) Negative (Negative) 01/30/19 08:00 Urine Ketones Negative (Negative) 01/30/19 08:00 Urine Blood Negative (Negative) 01/30/19 08:00 Urine Nitrite Negative (Negative) 01/30/19 08:00 Urine Bilirubin Negative (Negative) 01/30/19 08:00 Urine Urobilinogen Negative (Negative) 01/30/19 08:00 Ur Leukocyte Esterase Negative (Negative) 01/30/19 08:00 Urine Osmolality 387 mOsm/kg (500-800) L 01/30/19 08:00 Hepatitis A IgM Ab NON-REACTIVE (NON-REACTIVE) 01/30/19 07:37 Hep Bs Antigen Neg (Neg) 01/30/19 07:37 Hep B Core IgM Ab NON-REACTIVE (NON-REACTIVE) 01/30/19 07:37 Hepatitis C Antibody Neg (Neg) 01/30/19 07:37 PG Care Time/CCT Total # of Minutes Spent Total Time Spent with Patient: Total time spent is greater than 50% in coordination of care (as documented) at patient's floor/unit and/or counseling patient: (1) Acute renal failure Acute renal failure type: unspecified Qualified Code(s): N17.9 - Acute kidney failure, unspecified (2) Alcohol withdrawal Complication of substance-induced condition: uncomplicated Qualified Code(s): F10.230 - Alcohol dependence with withdrawal, uncomplicated
[2019-01-31] MEDS ORDERED: GABAPENTIN 600 MG TAB PO SCH (12:00)
--- NOTE | 2019-01-31 12:22 | Discharge Summary ---
Date of Service January 31, 2019 Admission HPI Per Admitting Provider This is a 39-year-old male who presents to the ER after attempting to check himself into rehab earlier today. He states his last drink was at 6 AM, he has been drinking over 1/5 of vodka every day for the last 4 days. Several days ago he began to experience worsening emesis. He notes blood tinged emesis earlier today. No curt melena or hematochezia. He also endorses hiccups for several days. He endorses severe muscle cramping in his abdomen, a sore throat and fatigue. Earlier at [facility] today, because of his discomfort and emesis they recommended he come to the ER to be evaluated. Patient notes alcohol abuse for several years. Occasional vaping with THC. History of marijuana use. Currently no other street drugs at this time. Patient smokes half pack per day. Drinks over fifth of vodka per day as above. Motivated for detox at [facility] upon discharge, says he wants to do it for "his kids". ED course: Patient with mild hypertension and sinus tachycardia on telemetry. Never hypoxic or febrile. CBC noted for leukocytosis 19.87, normal hemoglobin and hematocrit 17.4/47.3. Normal coagulation. VBG 7.3 6/43/59/24. Chemistry notable for sodium 124, bicarb 20, elevated anion gap 24, BUN/creatinine 21/3.29. Hyperglycemia 319. Proved to 249 after bolus. Mildly low phosphorus and magnesium. Hyperbilirubinemia 3.4, direct bilirubin 0.5. Mild transaminitis AST over ALT 86/200. Mildly elevated alkaline phosphatase 131. Elevated beta hydroxybutyric acid 4.62. Past medical history: Alcohol dependence, hypertension, kidney dysfunction (patient is unsure of specifics) Past surgical history: None Social history: As above Admission Exam Per Admitting Provider Vitals noted and within normal limits with the exception of mild hypertension, sinus tachycardia. GENERAL: Awake, alert to person, place, and time, nontoxic-appearing, in no distress. HENT: Normocephalic, atraumatic. Mucus membranes appear moist. Dermatitis of the forehead and malar cheeks. EYES: Normal conjunctiva. Sclera non-icteric. EOMI. NECK: Supple. Full range of motion. No JVD. RESPIRATORY: Clear to auscultation. Normal work of breathing. CARDIAC: Regular rate, normal rhythm. Extremities warm and well perfused, 2+ radial pulses bilaterally; 2+ posterior tibialis pulses bilaterally. ABDOMEN: Soft, non-distended. No tenderness to palpation in all four quadrants. No rebound or guarding. No masses. Bowel sounds are normal. LOWER EXTREMITIES: Inspection of calves reveal equal size bilaterally. They are non-tender. No edema. No discoloration. NEURO: No gross focal motor deficits noted. Sensation in tact. CN II-XII grossly in tact. . SKIN: Rash on face consistent with dermatitis. No jaundice noted. PSYCH: Appropriate mood and affect. Cooperative. Principal Diagnosis Alcohol withdrawal Discharge Exam Constitutional cooperative; no acute distress and not ill appearing Neck normal visual inspection Respiratory normal respiratory effort and able to speak in complete sentences; no respiratory distress, no labored breathing, no retractions, no cough and no audible wheezes Auscultation: lungs clear to auscultation bilaterally; no crackles, no rales, no rhonchi and no wheezes Cardiovascular Rate/Rhythm: regular rate and regular rhythm Heart Sounds: normal S1 and normal S2; no gallop, no murmur and no cardiac rub Vessels: posterior tibial pulses present Extremities: no pedal edema and no edema Gastrointestinal (Abdomen) Inspection/Auscultation: abdomen normal to inspection and normal bowel sounds; abdomen not distended Percussion/Palpation: abdomen soft; abdomen nontender, no guarding, abdomen not rigid and no abdominal mass Psychiatric Orientation: alert Motor Behavior: no psychomotor agitation Speech: no pressured speech Mood: no irritable mood Insight: good insight Discharge Data Allergies Allergy/AdvReac Type Severity Reaction Status Date / Time Penicillins Allergy Rash Unverified 01/29/19 18:27 Consultations 01/29/19 19:47 ED Decision to Admit Stat 01/29/19 22:38 Consult Case Management - Discharge Planning Routine Ordered Studies 01/29/19 19:17 CT abd pelvis wo con Stat Hospital Course (1) Alcohol withdrawal: Pt is a 39 yo M with a PMH HTN, depression, alcohol withdrawal, tobacco abuse, WILMAR, hyperglycemia, hyponatremia, hyperbilirubinemia, hypophosphatemia that was admitted to the hospital for alcohol withdrawal after presentation to the ED hours after his last drink. Patient came to the ED after last drink saying he wanted to receive treatment and then go to rehab at [facility] once he was able to go. During his stay he was monitored on the alcohol withdrawal scoring system to ensure prevention of progression to delirium tremens. He was also given multiple liters of IV fluids to rehydrate him and fix his WILMAR that was found on admission. Given patient-reported recent history of scant hematemesis, he was not given chemical DVT prophylaxis, and was treated with IV famotidine 20 mg BID to protect from any gastric bleeding. CT abd/pelv done to rule out esophageal rupture, which came back negative for rupture and showed signs of hepatic steatosis as well as esophagitis. His Hg did drop from 17.4 to 11.3 the next day, but given the amount of fluid he received and the drop of all of his blood counts, it is far more likely to be dilutional than anything else. Home seroquel was held in the setting of acute withdrawal with increased sensitivity to having a lower seizure threshold. All other chronic medical conditions were managed as per home medication regimens. Electrolyte deficiencies were repleted as necessary. Given elevated hepatic enzymes on admission, hepatitis panel was ordered which returned negative for Hepatitis A, B and C. Patient was stabilized and transferred to detox unit at [facility]. (2) Acute renal failure: (3) History of hematemesis: (4) Hypophosphatemia: (5) Hypomagnesemia: (6) Depression: (7) Tobacco abuse: (8) Dermatitis: Total Time Total Time Spent Total Time Spent (In Minutes): see attending attestation Discharge Plan Discharge Items Patient Disposition: Drug & Alcohol Rehab Reason For Visit: ALCOHOL WITHDRAWAL, HYPERMESIS Discharge Diagnosis: Alcohol withdrawal Activity: Resume your previous activity Non-emergency contact: Primary Care Provider Call non-emergency contact if: you have any medication questions Follow-up/Referrals: Shruthi Johnson MD [Resident] - PCP,NO [Primary Care Provider] - Diet: Regular Addtl Attending Provider Instructions: You were admitted to the hospital for acute alcohol withdrawal and persistent vomiting. During your stay, we found your kidney enzyme levels to be high secondary to the vomiting and dehydration you were undergoing. You were given fluid through an IV which helped rehydrate your body and started to bring your l ab values down closer to normal. We also ran blood tests for Hepatitis A, B and C, all of which came back negative for any disease. During your stay we also managed your withdrawal symptoms with folate, thiamine and ativan as needed to help you stay out of withdrawal seizures/Delirium Tremens. Your rehab facility will be able to help you in continuing to manage your withdrawal symptoms and cutting back on your alcohol intake. Pending Studies at Discharge: No Stand-Alone Forms: [facility] Skilled Items Patient informed of condition?: Yes DNR: No Discharge Level of Care: Acute rehab Communicable Disease: No Discharge Prognosis: Improving Lines: None Urinary Catheter: No Medications and DC Order Prescriptions: Continued pantoprazole 20 mg Tablet,Delayed Release (Dr/Ec) PO DAILY RF: 0 metoprolol tartrate 25 mg Tablet PO BID RF: 0 Discontinued quetiapine [Seroquel] 25 mg Tablet PO BID RF: 0 Discharge Orders: Discharge Order (Routine); Ordered 01/31/19 Ordered By: Shruthi Johnson Admission Data Admit Date/Time: 01/29/19 20:57 Attending Provider: Britton Fuller Admit Provider: Ana Ly Primary Care Provider: PCP,NO Other Providers: Beny Peres ; Shruthi Johnson Other Interventions: Discharge Summary Assessment (RN) Last Done: 01/31/19 14:18 DC Date/Time DO NOT enter until pt leaves facility: 01/31/19 14:42 Supervising Physician Co-Signing Physician Notes Attending attestation Pt seen and examined in concert with Dr. Johnson. In agreement with the documented findings as noted in the resident documentation with any exceptions or additions as noted here. Gradually improving odynophagia and resolution of epigastric soreness. Tolerating POI very well at full diet, though prefers softs. No complaints of bleeding at present. On examination, S1/S2 nl RRR no MCG. CTAB. Abd NT/ND BS+ve WILMAR 2/2 n/v and decreased POI - improved with IVF, tolerating POI well on discharge. Alcohol withdrawal - little ativan need throughout admission (2mg) and tole rating gabapentin protocol well. Will transition to detox wing at [facility] on discharge. HTN - likely related to withdrawal, but well managed with gabapentin and rare PRN ativan. Continue home regimen on discharge and transition to detox. Else see resident documentation as noted. Resident Activity Tracking Resident Involvement: Resident Care Provided Care Provided: Adult Hospital Medicine
[2019-01-31 12:52] LABS: Hematocrit (blood only) 34.7 % (42-52); Hemoglobin 11.7 g/dL (14.0-18.0)
[2019-01-31 13:17] LABS: Creatinine Clr Calc Pharmacy 54.1 ml/min; Est GFR (African American) 54.5
[2019-02-01] MEDS ORDERED: GABAPENTIN 400 MG CAP PO SCH (12:00)
[2019-02-02] MEDS ORDERED: GABAPENTIN 100 MG CAP PO SCH (12:00)
== END 2019-01-31 14:42 | disposition alcohol treatment (31) | DRG 897 ==
LOC: ED 17:25 → SUATTDRO 20:57 → 2N 20:57